=== PATIENT | female | born 1990 | race Two or more races ===

== ENCOUNTER 2025-02-14 19:42 | Emergency (ER) | payer MEDICAID, SELFPAY ==
[2025-02-14 19:43] VITALS: BMI 31.1
[2025-02-14 20:25] VITALS: BP 116/79; PULSE 70; RESP 18; TEMP 37.2; O2SAT 99
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
== END 2025-02-14 20:48 | disposition home or self-care (01) ==
LOC: SERX 20:46
PROVIDERS: Emergency Provider Emergency Medicine
DX: T14.8XXA Other injury of unspecified body region, initial encounter (principal); V43.52XA Car driver injured in collision with other type car in traffic accident, initial encounter; M54.2 Cervicalgia; R51.9 Headache, unspecified
CPT/HCPCS: 99281